=== PATIENT | male | born 1945 | race African-American/Black ===

== ENCOUNTER 2021-06-30 08:08 | Observation (INO) | payer MEDICARE ==
[2021-06-24 13:42] LABS: Hematocrit 27.3 % (35.5-45.6); Hemoglobin 8.7 gm/dl (11.8-15.2); Mean Corpuscular HGB Conc 32 % (32-34); Mean Corpuscular Volume 96 fl (84-94); Platelet Count 704 K/mm3 (140-440); Red Blood Count 2.84 M/mm3 (3.65-5.03); Red Cell Distribution Width 17.4 % (13.2-15.2)
[2021-06-24 15:01] LABS: Alanine Aminotransferase 14 units/L (7-56); Albumin 3.7 g/dL (3.9-5); BUN/Creatinine Ratio 38; Blood Urea Nitrogen 38 mg/dL (9-20); Calcium 9.2 mg/dL (8.4-10.2); Hemolysis Index 0
--- NOTE | 2021-06-24 18:17 | Anesthesia Consultation ---
Anesthesia Consult and Med Hx Date of service: 06/30/21 - Airway Anesthetic Teeth Evaluation: Chipped (Missing) ROM Head & Neck: Adequate Mental/Hyoid Distance: Adequate Mallampati Class: Class IV Intubation Access Assessment: Possibly Difficult - Pre-Operative Health Status ASA Pre-Surgery Classification: ASA3 Proposed Anesthetic Plan: General - Pulmonary Hx Smoking: Yes (QUIT 2 WEEKS AGO, ( SMOKED X 30 YRS)) Hx Respiratory Symptoms: Yes (chronic cough; unchanged) Hx Sleep Apnea: No (MARTIN PRE SCREEN HIGH RISK.) - Cardiovascular System Hx Hypertension: Yes Hx Peripheral Vascular Disease: Yes (RT ILIAC ARTERY STENOSIS) - Central Nervous System CVA: No Hx Psychiatric Problems: No (acute encephalopathy) - Gastrointestinal Hx Ulcer: Yes (GI bleed) Hx Gastroesophageal Reflux Disease: Yes - Endocrine Hx Renal Disease: No Hx Liver Disease: No Hx Insulin Dependent Diabetes: No Hx Non-Insulin Dependent Diabetes: Yes Hx Thyroid Disease: No - Hematic Hx Anemia: Yes (Hgb 8.7) Hx Sickle Cell Disease: No - Other Systems Hx Alcohol Use: No Hx Substance Use: No Hx Cancer: No - Additional Comments Anesthesia Medical History Comments: Daughter present. Spoke with son over the phone. Here [id number] for scope
[~2021-06-30 08:08] MED LIST: LACTATED RINGERS 1,000 ML IV SCH
[2021-06-30] MEDS ORDERED: ONDANSETRON 4 MG/2 ML INJ IV PRN ×2 (09:09→13:23)
[2021-06-30] MEDS ORDERED: HYDROmorphone 1 MG/1 ML INJ IV PRN (09:09)
--- NOTE | 2021-06-30 09:09 | Anesthesia Day of Surgery ---
Anesthesia Day of Surgery - Day of Surgery Patient Examined: Yes Patient H&P Reviewed: Yes Patient is NPO: Yes
[2021-06-30] MEDS ORDERED: ceFAZolin/Water 2 GM/20 ML 2 GM/20 ML SYRINGE IV NR (10:00)
[2021-06-30] MEDS ORDERED: GENTAMICIN/NS 80 MG/100 ML 100 ML IV SCH (10:00)
[2021-06-30] MEDS ORDERED: GENTAMICIN 160 MG in SODIUM CHLORIDE 0.9% 100 ML IV NR (10:30)
[2021-06-30] MEDS ORDERED: fentaNYL 100 MCG/2 ML INJ ONE (10:53)
[2021-06-30] MEDS ORDERED: LIDOCAINE MPF (2%) 20 MG/1 ML VIAL 5 ML ONE (10:53)
[2021-06-30] MEDS ORDERED: propofoL 200 MG/20 ML VIAL IV ONE (10:53)
[2021-06-30] MEDS ORDERED: ePHEDrine SULFATE 50 MG/1 ML INJ ONE (11:30)
[2021-06-30] MEDS ORDERED: dexAMETHasone 20 MG/5 ML VIAL ONE (12:07)
[2021-06-30] MEDS ORDERED: ONDANSETRON 4 MG/2 ML INJ ONE (12:07)
[2021-06-30] MEDS ORDERED: NALOXONE 0.4 MG/1 ML INJ IV PRN (12:33)
[2021-06-30] MEDS ORDERED: ZOLPIDEM 5 MG TAB PO PRN (12:33)
[2021-06-30] MEDS ORDERED: ONDANSETRON 4 MG ODT TAB PO PRN (12:33)
--- NOTE | 2021-06-30 12:33 | Post Operative Note ---
Pre-op diagnosis: aur Post-op diagnosis: same Findings: bph Procedure: cysto turp bipsies with US Anesthesia: GETA Surgeon: JEAN HOFFMAN Estimated blood loss: minimal Pathology: list (prostate) Specimen disposition: to lab Condition: stable Disposition: PACU
--- NOTE | 2021-06-30 12:33 | Ultrasound Report ---
Ultrasound-guided transrectal prostate biopsy HISTORY: ELEVATED PSA. TECHNIQUE: Grayscale imaging performed. IMPRESSION: Prostate volume is 25 mL with slightly heterogeneous appearance. Please refer to the oper ative note for biopsy details. Signer Name: Elijah Nolan MD Signed: 06/30/2021 12:28 PM Workstation Name: [id number]
[2021-06-30] MEDS ORDERED: oxyCODONE /ACETAMINOPHEN 5-325MG TAB PO PRN ×2 (12:38→14:00)
--- NOTE | 2021-06-30 12:44 | Operative Report ---
DATE OF SURGERY: 06/30/2021 PREOPERATIVE DIAGNOSES: History of elevated PSA, very frail, weight loss, and recurrent urinary retention. POSTOPERATIVE DIAGNOSES: History of elevated PSA, very frail, weight loss, and recurrent urinary retention. PROCEDURES: Transrectal prostate biopsies and transurethral resection of prostate. SURGEON: Jamey Melgar M.D. ANESTHESIA: General. FINDINGS: This is a gentleman, who had 2 episodes of retention, difficulty voiding, elevated pressures and poor flow on urodynamics. He now presents for TURP. His PSA has been quite high. He had a biopsy about 10 years ago, which was negative. His PSA did come down, so we just wanted to do some sampling transrectally. DESCRIPTION OF PROCEDURE: The patient was brought to the operating room and placed on the operating table. Following the induction of anesthesia, placed in lithotomy position, prepped and draped in usual sterile fashion. Cystourethroscopy showed lateral lobe, mostly from the left side, obstructing quite vascular. The transrectal probe was placed and biopsy 3 on the right, 3 on the left were carried out. The gland measured about 25 grams. At this point, we resected the left lobe. There was some bleeding anteriorly, which was cauterized. The chips were evacuated out. A small amount of tissue from the right was also resected. The patient tolerated the procedure well. A channel was wide open. Bladder was 2+ trabeculated. No resection was carried out near the trigone. The patient tolerated the procedure well. All the chips were evacuated out. The patient tolerated the procedure well. A 3-way 22 was placed, which was clear. Brought to recovery room with minimal blood loss in stable condition. TID: [id number] RECEIPT: [id number] ADRIANA/YOSFE
[2021-06-30] MEDS ORDERED: SODIUM CHLORIDE 0.9% IRRIG SOLN 2000 ML IR ONE (12:48)
[2021-06-30] MEDS ORDERED: D5W/0.45% NACL/KCL 20 MEQ 20 MEQ/1,000 ML BAG IV SCH (13:00)
[2021-06-30] MEDS ORDERED: ACETAMINOPHEN 325 MG TAB PO PRN ×2 (14:00)
--- NOTE | 2021-06-30 15:31 | Post Anesthesia Evaluation ---
- Post Anesthesia Evaluation Patient Participated: Yes Airway Patent: Yes Stable Respiratory Function: Yes Nausea/Vomiting: No Temp > 96.8F: Yes Pain Manageable: Yes Adequeate Hydration: Yes Anesthesia Complications: No
[2021-06-30] MEDS: DOCUSATE SODIUM 100 MG CAP PO SCH (22:17)
[2021-07-01] MEDS: ceFAZolin/NS 1 GM/50 ML 1 GM/50 ML BAG IV SCH ×3 (01:57→10:49)
[2021-07-01 05:00] VITALS: BP 163/55
[2021-07-01 05:29] LABS: Hematocrit 25.3 % (35.5-45.6); Hemoglobin 7.8 gm/dl (11.8-15.2)
[2021-07-01 05:42] LABS: Alanine Aminotransferase 7 units/L (7-56); Albumin 3.4 g/dL (3.9-5); BUN/Creatinine Ratio 30; Blood Urea Nitrogen 30 mg/dL (9-20); Calcium 7.9 mg/dL (8.4-10.2); Hemolysis Index 4
[2021-07-01] MEDS: SODIUM CHLORIDE 0.9% IRRIG SOLN 2000 ML IR SCH ×3 (06:00→14:56)
[2021-07-01] MEDS: DOCUSATE SODIUM 100 MG CAP PO SCH (10:50)
--- NOTE | 2021-07-01 11:44 | Post Anesthesia Evaluation ---
- Post Anesthesia Evaluation Patient Participated: Yes (Son able to translate via telephone) Airway Patent: Yes Stable Respiratory Function: Yes Nausea/Vomiting: No Temp > 96.8F: Yes Pain Manageable: Yes Adequeate Hydration: Yes Anesthesia Complications: No Block Receding Appropriately: Not Applicable Patient on Ventilator: No
--- NOTE | 2021-07-01 12:51 | Discharge Summary ---
Short Stay Discharge Plan Activity: other (no straining ) Weight Bearing Status: Partial Weight Bearing Diet: regular, low fat, low cholesterol Special Instructions: other (teach cath care) Durable Medical Equipment Needed Upon Discharge: other (mcmahon to leg bag ) Follow up with: PRIMARY CARE, [Primary Care Provider] - 7 Days JEAN HOFFMAN MD [Staff Physician] - 7 Days
--- NOTE | 2021-07-01 12:52 | Progress Note ---
Subjective Date of service: 07/01/21 Principal diagnosis: bph Objective - Constitutional Vitals: Vital Signs - 12hr 07/01/21 04:35 Temperature 98.0 F Pulse Rate 64 Respiratory 16 Rate Blood Pressure 163/55 O2 Sat by Pulse 96 Oximetry General appearance: Present: no acute distress - Respiratory Respiratory effort: normal Extremities: no ischemia - Gastrointestinal General gastrointestinal: Present: soft - Labs CBC & Chem 7: 07/01/21 04:39 07/01/21 04:39 Labs: Abnormal lab results 06/30/21 07/01/21 07/01/21 Range/Units 15:19 04:39 04:39 Hgb 7.8 L (11.8-15.2) gm/dl Hct 25.3 L (35.5-45.6) % BUN 30 H (9-20) mg/dL Glucose 103 H (75-100) mg/dL POC Glucose 123 H (70-105) mg/dL Calcium 7.9 L (8.4-10.2) mg/dL Total Protein 5.7 L (6.3-8.2) g/dL Albumin 3.4 L (3.9-5) g/dL Medications & Allergies - Medications Allergies/Adverse Reactions: Allergies No Known Allergies Allergy (Verified 06/13/21 10:03) Home Medications: Home Medications Medication Instructions Recorded Confirmed Last Taken Type Pantoprazole [Protonix] 40 mg PO QDAY #30 tablet 06/13/21 06/23/21 Unknown Rx Tamsulosin [Flomax] 0.8 mg PO QDAY 06/13/21 06/23/21 Unknown History Acetaminophen [Tylenol Extra 500 mg PO 4XD 06/20/21 06/20/21 Unknown History Strength] Active Medications: Generic Name Dose Route Start Last Admin Trade Name Freq PRN Reason Stop Dose Admin Acetaminophen 650 mg 06/30/21 14:00 07/01/21 02:44 Acetaminophen 325 Mg Tab PO 650 mg Q4H PRN Administration Pain MILD(1-3)/Fever >100.5/ALEXIS Docusate Sodium 100 mg 06/30/21 22:00 07/01/21 10:50 Docusate Sodium 100 Mg Cap PO 100 mg BID TIFFANIE Administration Lactated Ringer's 1,000 mls @ 75 mls/hr 06/30/21 06:00 06/30/21 09:30 Lactated Ringers IV 75 mls/hr DIRECT TIFFAINE Administration Potassium Chloride/Dextrose/Sod Cl 20 meq in 1,000 mls @ 125 mls/hr 06/30/21 13:00 06/30/21 22:18 D5w/0.45% Nacl/Kcl 20 Meq IV 125 mls/hr DIRECT TIFFANIE Administration Cefazolin Sodium 1 gm in 50 mls @ 100 mls/hr 06/30/21 18:00 07/01/21 10:49 Ancef/Ns 1 Gm/50 Ml IV 07/02/21 10:29 100 mls/hr Q8H TIFFANIE Administration Protocol Naloxone HCl 0.1 mg 06/30/21 12:33 Naloxone 0.4 Mg/1 Ml Inj IV Q2MIN PRN Res Rate </= 8 or 02 SAT < 92% Ondansetron HCl 4 mg 06/30/21 12:33 Ondansetron 4 Mg Odt Tab PO Q8H PRN Nausea And Vomiting Oxycodone/Acetaminophen 1 tab 06/30/21 12:38 Oxycodone /Acetaminophen 5-325mg Tab PO Q6H PRN Pain, Moderate (4-6) Sodium Chloride 2,000 ml 06/30/21 13:00 07/01/21 06:00 Sodium Chloride 0.9% Irrig Soln 2000 Ml IR 2,000 ml DIRECT TIFFANIE Administration Sodium Chloride 10 ml 06/30/21 22:00 07/01/21 10:50 Sodium Chloride 0.9% 10 Ml Flush Syringe IV 10 ml BID TIFFANIE Administration Sodium Chloride 10 ml 06/30/21 14:00 Sodium Chloride 0.9% 10 Ml Flush Syringe IV PRN PRN LINE FLUSH Zolpidem Tartrate 5 mg 06/30/21 12:33 06/30/21 22:17 Zolpidem 5 Mg Tab PO 5 mg QHS PRN Administration Sleep
--- NOTE | 2021-07-01 13:28 | Consultation ---
History of Present Illness - Reason for Consult Consult date: 07/01/21 Medical management Requesting physician: JEAN HOFFMAN - History of Present Illness S/p cysto turp biopsies with ultrasound Postop patient doing well Asked for evaluation of anemia Past History Past Medical History: GERD, other (BPH) Past Surgical History: TURP Social history: lives with family, full code Family history: hypertension Medications and Allergies Allergies Allergy/AdvReac Type Severity Reaction Status Date / Time No Known Allergies Allergy Verified 06/13/21 10:03 Home Medications Medication Instructions Recorded Confirmed Last Taken Type Pantoprazole [Protonix] 40 mg PO QDAY #30 tablet 06/13/21 06/23/21 Unknown Rx Tamsulosin [Flomax] 0.8 mg PO QDAY 06/13/21 06/23/21 Unknown History Acetaminophen [Tylenol Extra 500 mg PO 4XD 06/20/21 06/20/21 Unknown History Strength] Active Meds: Active Medications Acetaminophen (Acetaminophen 325 Mg Tab) 650 mg PO Q4H PRN PRN Reason: Pain MILD(1-3)/Fever >100.5/ALEXIS Last Admin: 07/01/21 02:44 Dose: 650 mg Documented by: Docusate Sodium (Docusate Sodium 100 Mg Cap) 100 mg PO BID TIFFANIE Last Admin: 07/01/21 10:50 Dose: 100 mg Documented by: Lactated Ringer's (Lactated Ringers) 1,000 mls @ 75 mls/hr IV DIRECT TIFFANIE Last Admin: 06/30/21 09:30 Dose: 75 mls/hr Documented by: Potassium Chloride/Dextrose/Sod Cl (D5w/0.45% Nacl/Kcl 20 Meq) 20 meq in 1,000 mls @ 125 mls/hr IV DIRECT TIFFANIE Last Admin: 06/30/21 22:18 Dose: 125 mls/hr Documented by: Cefazolin Sodium (Ancef/Ns 1 Gm/50 Ml) 1 gm in 50 mls @ 100 mls/hr IV Q8H TIFFANIE; Protocol Stop: 07/02/21 10:29 Last Admin: 07/01/21 10:49 Dose: 100 mls/hr Documented by: Naloxone HCl (Naloxone 0.4 Mg/1 Ml Inj) 0.1 mg IV Q2MIN PRN PRN Reason: Res Rate </= 8 or 02 SAT < 92% Ondansetron HCl (Ondansetron 4 Mg Odt Tab) 4 mg PO Q8H PRN PRN Reason: Nausea And Vomiting Oxycodone/Acetaminophen (Oxycodone /Acetaminophen 5-325mg Tab) 1 tab PO Q6H PRN PRN Reason: Pain, Moderate (4-6) Sodium Chloride (Sodium Chloride 0.9% Irrig Soln 2000 Ml) 2,000 ml IR DIRECT TIFFANIE Last Admin: 07/01/21 06:00 Dose: 2,000 ml Documented by: Sodium Chloride (Sodium Chloride 0.9% 10 Ml Flush Syringe) 10 ml IV BID TIFFANIE Last Admin: 07/01/21 10:50 Dose: 10 ml Documented by: Sodium Chloride (Sodium Chloride 0.9% 10 Ml Flush Syringe) 10 ml IV PRN PRN PRN Reason: LINE FLUSH Zolpidem Tartrate (Zolpidem 5 Mg Tab) 5 mg PO QHS PRN PRN Reason: Sleep Last Admin: 06/30/21 22:17 Dose: 5 mg Documented by: Review of Systems All systems: negative Exam - Constitutional Vitals: Temp Pulse Resp BP Pulse Ox 98.0 F 64 16 163/55 96 07/01/21 04:35 07/01/21 04:35 07/01/21 04:35 07/01/21 04:35 07/01/21 04:35 General appearance: Present: no acute distress, well-nourished - EENT Eyes: Present: PERRL ENT: hearing intact, clear oral mucosa - Neck Neck: Present: supple, normal ROM - Respiratory Respiratory effort: normal Respiratory: bilateral: CTA - Cardiovascular Heart rate: 68 Rhythm: regular Heart Sounds: Present: S1 & S2. Absent: rub, click - Extremities Extremities: pulses symmetrical, No edema Peripheral Pulses: within normal limits - Abdominal General gastrointestinal: Present: soft, non-tender, non-distended, normal bowel sounds Male genitourinary: Present: normal - Integumentary Integumentary: Present: clear, warm, dry - Musculoskeletal Musculoskeletal: gait normal, strength equal bilaterally - Psychiatric Psychiatric: appropriate mood/affect, intact judgment & insight - Neurologic Neurologic: CNII-XII intact, moves all extremities Results - Labs CBC & Chem 7: 07/01/21 04:39 07/01/21 04:39 Labs: Abnormal lab results 06/30/21 07/01/21 07/01/21 Range/Units 15:19 04:39 04:39 Hgb 7.8 L (11.8-15.2) gm/dl Hct 25.3 L (35.5-45.6) % BUN 30 H (9-20) mg/dL Glucose 103 H (75-100) mg/dL POC Glucose 123 H (70-105) mg/dL Calcium 7.9 L (8.4-10.2) mg/dL Total Protein 5.7 L (6.3-8.2) g/dL Albumin 3.4 L (3.9-5) g/dL Assessment and Plan - Patient Problems (1) Anemia Current Visit: Yes Status: Chronic Qualifiers: Anemia type: unspecified type Qualified Code(s): D64.9 - Anemia, unspecified Plan to address problem: Anemia work-up initiated Patient to be discharged on ferrous gluconate 325 once a day Follow-up with the primary care physician (2) BPH (benign prostatic hyperplasia) Current Visit: Yes Status: Chronic Qualifiers: Lower urinary tract symptom presence: symptoms present Plan to address problem: Had TURP and biopsies (3) GERD (gastroesophageal reflux disease) Current Visit: Yes Status: Chronic Plan to address problem: Continue PPIs (4) DVT prophylaxis Current Visit: Yes Status: Acute Plan to address problem: Anticoagulation GI prophylaxis
[2021-07-01 13:44] LABS: % Iron Saturation 23.81 %
== END 2021-07-01 15:35 | disposition home or self-care (01) ==
LOC: OR 08:08 → 3A 14:00
PROVIDERS: ADMIT Urology; ATTEND Urology
DX: N40.1 Benign prostatic hyperplasia with lower urinary tract symptoms (principal); Z20.822 Contact with and (suspected) exposure to COVID-19; R97.20 Elevated prostate specific antigen [PSA]; K21.9 Gastro-esophageal reflux disease without esophagitis; D64.9 Anemia, unspecified; R33.8 Other retention of urine; R63.4 Abnormal weight loss; Z79.899 Other long term (current) drug therapy; Z98.890 Other specified postprocedural states; Z68.1 Body mass index [BMI] 19.9 or less, adult
CPT/HCPCS: 36415; 52601; 76872; 80053; 82962; 83550; 85014; 85018; 85027; 86850; 86900; 86901; 88305; 96365; 96366; G0378; J0690; J1100; J1170; J1580; J2405; J2704; J3010; J3480; J3490; J7120; U0003